=== PATIENT | male | born 1945 | race Caucasian/White ===

== ENCOUNTER 2016-08-04 06:38 | Inpatient (IN) | payer MEDICARE ==
[2016-07-28 17:20] LABS: BASOPHILS 0.3 %; BASOPHILS ABSOLUTE 0.03 10/3/uL (0.0-0.16); EOSINOPHILS 2.4 %; EOSINOPHILS ABSOLUTE 0.25 10/3/uL (0.0-0.53); HEMATOCRIT 38.9 % (40.0-51.0); HEMOGLOBIN 13.3 g/dL (13.6-17.8); IMMATURE GRANULOCYTES 0.2 %; IMMATURE GRANULOCYTES ABSOLUTE 0.02 10/3/uL (0.0-0.11); LYMPHOCYTES 18.5 %; LYMPHOCYTES ABSOLUTE 1.97 10/3/uL (0.67-4.30); MANUAL DIFF NO %; MEAN CORPUS HGB CONC 34.2 g/dL (32.0-36.0); MEAN CORPUSCULAR HEMOGLOB 30.6 pg (26.0-34.0); MEAN CORPUSCULAR VOLUME 89.4 fL (80-100); MONOCYTES 9.7 %; MONOCYTES ABSOLUTE 1.03 10/3/uL (0.21-1.20); NEUTROPHILS 68.9 %; NEUTROPHILS ABSOLUTE 7.32 10/3/uL (2.02-8.40); PLATELET COUNT 216 10/3/uL (150-400); RBC DISTRIBUTION WIDTH 12.9 % (12.0-16.0); RED CELL COUNT 4.35 10/6/uL (4.7-6.1); WHITE BLOOD CELLS 10.6 10/3/uL (4.5-10.5)
[2016-07-28 17:26] LABS: INTERNATIONAL NORMAL RATI 1.1 UNITS (-); PROTIME (NOT ORD) 14.3 SEC (12.0-14.5)
[2016-07-28 17:38] LABS: % IRON SAT 19 % (20-50); A/G RATIO 1.2 (0.7-1.9); ALBUMIN 3.9 G/DL (3.5-5.0); ALKALINE PHOSPHATASE 59 U/L (45-117); BUN (BLOOD UREA NITROGEN) 32 MG/DL (6-23); CALCIUM, SERUM 9.4 MG/DL (8.5-10.4); CHLORIDE, SERUM 103 MMOL/L (96-112); CO2 (CARBON DIOXIDE) 29 MMOL/L (24-34); CREATININE 1.44 MG/DL (0.70-1.30); GFR AFRICAN AMERICAN 56 ML/MIN (>=60); GFR NON AFRICAN AMERICAN 49 ML/MIN (>=60); GLOBULIN 3.3 G/DL (2.5-4.1); GLUCOSE, SERUM 156 MG/DL (60-99); IRON BINDING CAPACITY 318 MCG/DL (250-450); IRON, SERUM 60 MCG/DL (35-150); POTASSIUM, SERUM 4.5 MMOL/L (3.5-5.3); SGOT(AST) 20 U/L (5-40); SGPT(ALT) 39 U/L (5-65); SODIUM, SERUM 138 MMOL/L (135-148); TOTAL BILIRUBIN 0.4 MG/DL (0-1.2); TOTAL PROTEIN 7.2 G/DL (6.0-8.5)
[2016-07-28 18:23] LABS: ASCORBIC ACID (UR NOT ORDER) NEG (NEG); BILIRUBIN, URINE NEGATIVE (NEG); KETONE, URINE NEGATIVE (NEG); LEUKOCYTE ESTERASE(NOT OR NEG (NEG); WBC (NOT ORDERED) (RFLEX) < 1 (0-5)
--- NOTE | ~2016-08-04 | OP ---
Record Of Operation [facility] [address] [place]. [address] NAME: ABIODUN MILLER : 45 STATUS : ADM IN [facility]#: [id number] AGE: 71 ADM/REG DATE : 08/04/16 MR#: [id number] REPORT SERV DATE: 08/05/16 DICTATED BY: DUSTIN CALI DATE: 08/04/16 REPORT STATUS : Draft TRANSCRIBED BY: THOMAS DATE: 08/04/16 DATE OF PROCEDURE: 08/04/2016 PREOPERATIVE DIAGNOSES: 1. Coronary artery disease with angina. 2. Paroxysmal atrial fibrillation. 3. Aortic valve stenosis. 4. Type 2 insulin-dependent diabetes mellitus. 5. Morbid obesity (BMI greater than 40). 6. Obstructive sleep apnea. 7. Hypertension. 8. Hyperlipidemia. POSTOPERATIVE DIAGNOSES: 1. Coronary artery disease with angina. 2. Paroxysmal atrial fibrillation. 3. Aortic valve stenosis. 4. Type 2 insulin-dependent diabetes mellitus. 5. Morbid obesity (BMI greater than 40). 6. Obstructive sleep apnea. 7. Hypertension. 8. Hyperlipidemia. PROCEDURE PERFORMED: 1. Coronary artery bypass grafting x5, left internal mammary artery placed to left anterior descending, reverse saphenous vein graft placed to the first diagonal, reverse saphenous vein graft placed to the second obtuse marginal, reverse saphenous vein graft placed sequenced to the posterior descending artery and posterolateral branch vessels. 2. Aortic valve replacement using a 27 mm pericardial valve (Magna Ease). 3. Dyson-Maze IV procedure on cardiopulmonary bypass using radiofrequency ablation and cryoablation technique. 4. Endoscopic vein harvest, saphenous vein from the right leg. 5. Transesophageal echocardiography. SURGEON: Dustin Cali M.D. ASSISTANTS: Marko Joyner and Izzy Ayers. ANESTHESIA: General with Dr. Hooker and Dr. Prince. CNC MILL OPERATOR: Bob Swanson M.D. INDICATIONS: This is a 71-year-old, morbidly obese diabetic male with hypertension, who has a two-three year history of paroxysmal atrial fibrillation. He has been having episodes of dyspnea and decreasing exercise tolerance. He also noticed chest discomfort recently. These symptoms resolve with rest. He was seen by Dr. Swanson and underwent further evaluation. Record Of Operation [facility] [address] [place]. [address] NAME: ABIODUN MILLER : 45 STATUS : ADM IN PAT#: [id number] AGE: 71 ADM/REG DATE : 08/04/16 MR#: [id number] REPORT SERV DATE: 08/05/16 DICTATED BY: DUSTIN CALI DATE: 08/04/16 REPORT STATUS : Draft TRANSCRIBED BY: THOMAS DATE: 08/04/16 Nuclear stress test demonstrated moderate risk. Ventricular function was preserved with an EF of 55%. He had an echocardiogram that confirmed good ventricular function. He was found to have at least moderate aortic valve stenosis with a valve area of just greater than 1 cm2 and mean gradient across the valve of 18 mmHg. He underwent a cardiac catheterization, which demonstrated significant three-vessel coronary artery disease. We were asked to see the patient for possible coronary artery bypass grafting and maze procedure. We discussed this operation with the patient and his family. After lengthy discussion of operation, its indications, risks, they wished to proceed. Preoperative STS calculation mortality was 1.8% for just bypass surgery with a morbidity mortality of 18%. Aortic valve stenosis replacement was not included in this calculation. FINDINGS AT OPERATION: 1. Cross-clamp time 145 minutes. Total pump time 189 minutes. Intraoperative and echocardiography at the beginning of the case with Dr. Hooker demonstrated what appeared to be more severe aortic valve stenosis appreciated on cath. The patient's valve area was estimated less than 1.5 cm2 and gradient across the valve, peak was 33 mmHg. I discussed this finding with Dr. Swanson on the phone. It was concluded after our discussion that the patient should undergo aortic valve replacement for at least moderate aortic valve stenosis with a particularly calcified looking valve on echocardiography. 2. The LAD was a 1.75 mm moderately diseased vessel. A 3 mm RODRÍGUEZ was anastomosed to it with good runoff. 3. The first diagonal was 1.75 mm moderately diseased. A 3.5 mm RSVG was anastomosed to it with good runoff. 4. The first obtuse marginal was 1.75 mm mildly diseased. A 4 mm RSVG was anastomosed to it with good runoff. 5. The posterior descending artery was 1.75 mm mildly diseased. A 4 mm RSVG was anastomosed to it in a [id number] fashion with good runoff. 6. The posterolateral branch vessel was 2 mm mildly diseased. The end of the same 4 mm RSVG was anastomosed to it with good runoff. 7. The vein quality was okay. The vein was mildly thickened and small in the distal portion of the leg. There was a segment that did have clot and was chronically occluded. This was excised. All grafts did have good Doppler signal at the end of the case. 8. The aortic valve had 3 leaflets. Coronary anatomy was normal. There was no aortic root dilatation. The leaflets were heavily calcified as was the annulus. 9. The aortic valve was replaced using a 29 mm pericardial valve (Magna Ease). Eighteen Cor-Knots were used to secure the valve in place. 10.Dyson-Maze IV procedure was performed on cardiopulmonary bypass using the AtriCure radiofrequency ablation and cryoablation technique. See the Dyson-Maze IV lesion set checklist on the operative record for specific lesions set. This was a standard Dyson- Maze IV procedure. 11.We did ligate and amputate the left atrial appendage. 12.JUAN DIEGO at the end of the operation demonstrated that the aortic valve prosthesis was well seated and without perivalvular leak. There was no residual mitral insufficiency. 13.The patient's morbid obesity did increase the difficulty of the operation. Record Of Operation [facility] [address] [place]. [address] NAME: ABIODUN MILLER : 45 STATUS : ADM IN [facility]#: [id number] AGE: 71 ADM/REG DATE : 08/04/16 MR#: [id number] REPORT SERV DATE: 08/05/16 DICTATED BY: DUSTIN CALI DATE: 08/04/16 REPORT STATUS : Draft TRANSCRIBED BY: THOMAS DATE: 08/04/16 PATHOLOGIC SPECIMENS: Include left atrial appendage and aortic valve leaflets. DESCRIPTION OF PROCEDURE: The patient was brought to the operating suite where general anesthesia was induced, airway secured with an endotracheal tube. Lines secured by Anesthesia. Lopez catheter was placed. The patient's chest, abdomen, groin, and legs prepped with Hibiclens and ChloraPrep and draped with Ioban sterile sheets. JUAN DIEGO probe was placed by Dr. Hooker and after examination and discussion with Dr. Hooker. We re-called Dr. Swanson and informed him of the results of the JUAN DIEGO. After discussion with Dr. Swanson, it was decided to go ahead and replace this patient's heavily calcified aortic valve with at least moderate aortic stenosis. Then, saphenous vein was harvested from the right leg using endoscopic technique. Briefly, the vein was cut directly down upon through a 2 cm incision placed in the medial aspect of the right knee. Then, using VasoView trocars, the vessel was dissected from the surrounding subcutaneous tissue and fat. The side branches were identified, ligated, and divided with cautery. Once adequate length of vein had been dissected, a counter incision was made up in the groin and in the lower leg. The vein was ligated, divided, and brought through the knee incision. The vein quality was good. The leg was made hemostatic and closed in layers of absorbable suture. Skin was closed in subcuticular fashion. Next, a midline sternal incision was made and the sternum opened with a saw. The left hemithorax was elevated and the endothoracic fascia was incised. The side branches of the LUIS MIGUEL were clipped and divided. Once the LUIS MIGUEL was completely dissected, the patient was anticoagulated with heparin. The chest tube was placed in the left pleural cavity. The LUIS MIGUEL was clipped and divided distally. There was good flow through the LUIS MIGUEL and its pedicle was infiltrated with papaverine. Then, the Ruben retractor was placed in the pericardium over the innominate vein. The diaphragm was T'd and tacked to the side of the chest wall. Cannulation pursestring sutures were placed. Cannulation of the ascending aorta was carried out first. We then began the maze procedure on the right atrial side. A standard Dyson-Maze IV lesion set was performed using a combination of the AtriCure bipolar clamp and the cryoprobe. After right atrial appendage lesion was made, the dual-stage venous cannula was placed and the patient was placed on cardiopulmonary bypass. We continued with the right-sided lesion set for the maze procedure with superior and inferior vena caval lesions and right lateral atrial wall lesions. A coronary sinus and tricuspid annular lesions were performed using the cryoprobe. A retrograde cardioplegia cannula was placed in the coronary sinus. We then turned toward the left-sided portion of the maze procedure. The dissection was carried around the confluence of the pulmonary veins and the interatrial groove of [place]. Pulmonary vein isolation was then performed using AtriCure bipolar clamp and this was then tested for sensing and pacing ability and was negative. The lesion was placed at the base of the left atrial appendage and a connecting lesion between the left atrial appendage lesion and the pulmonary vein isolation lesion. Next, the aorta was cross-clamped. Initial dose cold blood cardioplegia solution was given Record Of Operation [facility] [address] [place]. [address] NAME: ABIODUN MILLER : 45 STATUS : ADM IN PAT#: [id number] AGE: 71 ADM/REG DATE : 08/04/16 MR#: [id number] REPORT SERV DATE: 08/05/16 DICTATED BY: DUSTIN CALI DATE: 08/04/16 REPORT STATUS : Draft TRANSCRIBED BY: MODJonel DATE: 08/04/16 in a combination of antegrade and retrograde fashion, then in a retrograde manner at 25 minutes intervals during the remainder of the cross-clamp period. Following this first dose of cardioplegia, a left atriotomy was made in the interatrial groove of [facility]. We then continued with the maze procedure. Superior and inferior dome lesions were performed around the left atrium and then mitral annular lesion was performed using a combination of AtriCure RFA and the cryoablation probe. Once this was completed, the LV vent was directed through the right superior pulmonary vein into the left ventricle and secured. The left atriotomy was then closed in a two-layer fashion with running pledgeted suture of 4-0 Prolene. We then turned our attention towards the bypass grafts. The heart support was placed. The heart was then positioned for the posterolateral branch graft. Arteriotomy was made and the end of the segment of vein graft was trimmed and anastomosed to it with 7-0 Prolene. This vein graft was then measured back to the posterior descending artery where another arteriotomy was made and the corresponding venotomy made in this vein graft. Then, a side- to-side saphenous coronary anastomosis was constructed with 7-0 Prolene. This sequential vein graft was measured back to the right side of the ascending aorta where it was divided. After another dose of cardioplegia, we positioned the heart for the obtuse marginal graft. Arteriotomy was made. The vein graft trimmed and anastomosed to it with 7-0 Prolene. This vein graft was then measured to the left side of the ascending aorta where it was divided. We then positioned the heart for the diagonal graft. Another arteriotomy was made. The vein graft trimmed and anastomosed to it with 7-0 Prolene. This vein graft was measured back to the left side of the ascending aorta where it was divided. Another dose of cardioplegia was given and we positioned the heart for the LAD graft. Arteriotomy was made in the mid LAD. The LUIS MIGUEL was brought out of the left chest through a notch in the pericardium over the pulmonary artery. The LUIS MIGUEL was opened and anastomosed to the LAD with running suture of 8-0 Prolene. The endothoracic fascia was tacked to the epicardium. Another dose of cardioplegia was given and the heart support was removed. The heart was gently rotated toward the surgeon. The left atrial appendage was grasped. It was ligated and amputated at its base using thoracoscopic stapler and a 60 mm purple staple load. Following completion of the bypass grafts. We turned our attention towards the aortic valve. A hockey-stick type aortotomy incision was made. The aortic valve was inspected. It was heavily calcified 3-leaflet valve with normal coronary anatomy. There was no annular dilatation. The valve leaflets were excised and the annulus debrided of all calcific material. Iced saline irrigated copiously into the left ventricle and ascending aorta to remove any particulate matter. The valve was sized and a 27 mm pericardial valve was selected. Interrupted pledgeted sutures of 2-0 Tycron placed circumferentially about the aortic valve annulus with pledgets on the ventricular side. The sutures were passed through the sewing cuff of the prosthetic valve. This was lowered into position and each sutures individually secured and divided using a Cor-Knot device. A total of 18 Cor-Knots were utilized. Inspection of the right and left main coronary ostia demonstrated no obstruction. Warming was begun. The aortotomy incision was closed in a two-layer fashion with running Record Of Operation [facility] [address] [place]. [address] NAME: ABIODUN MILLER : 45 STATUS : ADM IN [facility]#: [id number] AGE: 71 ADM/REG DATE : 08/04/16 MR#: [id number] REPORT SERV DATE: 08/05/16 DICTATED BY: DUSTIN CALI DATE: 08/04/16 REPORT STATUS : Draft TRANSCRIBED BY: MODL DATE: 08/04/16 pledgeted suture of 5-0 Prolene. Then, the proximal ends of each of the vein grafts was measured to the ascending aorta. Three 4.5 mm punch aortotomies were made in the proximal ends of each vein grafts were anastomosed to these sites with running sutures of 6-0 Prolene. The patient was placed in Trendelenburg and final dose of warm blood cardioplegia was given in a retrograde fashion. Ventricular and atrial pacing wires were placed. Following the last dose of cardioplegia and deairing of the aorta, the aortic cross clamp was removed. The distal and proximal anastomoses were inspected and made hemostatic. Doppler demonstrated good flow through the grafts. The heart was paced in AV sequential fashion. Ventilation was begun. Low-dose inotropic agents were started. When heart demonstrated good contractility, it was allowed to fill and eject. When deairing was completed, the patient was taken out of Trendelenburg. The ascending aortic vent removed and these pursestring sutures tied and reinforced. The LV vent was likewise removed and these pursestring sutures tied. The patient was then weaned from cardiopulmonary bypass with inotropic support. The venous cannula was removed and these pursestring sutures tied. JUAN DIEGO examination demonstrated a well seated aortic valve prosthesis. Overall ventricular function was good. Septal hypokinesis was noted. There was no significant mitral insufficiency. Protamine was administered by Anesthesia and following a period of hemodynamic stability, the aortic cannula was removed and these pursestring sutures tied and reinforced. The patient continued to do well and chest irrigated copiously with saline. Meticulous hemostasis was obtained. Hemasorb was placed along the cut edge of the sternum. Once hemostasis was assured, the pericardium was draped over the anterior surface of the heart and tacked in position. Doppler demonstrated good flow through the grafts following protamine administration. Then, chest tubes were placed and the sternum reapproximated with 8 sternal wires. The clavipectoral fascia and linea alba were closed with #1 Stratafix. The subcutaneous tissue was closed with Stratafix and skin closed in a subcuticular fashion. The patient tolerated the procedure well. There were no complications. Sponge and needle counts were correct. DISPOSITION: The patient was left intubated, sedated, and transported to the intensive care unit in a stable condition. SIOMARA/THOMAS Dustin Cali M.D. / [id number] Record Of [address] [address] NAME: ABIODUN MILLER : 45 STATUS : ADM IN PAT#: [id number] AGE: 71 ADM/REG DATE : 08/04/16 MR#: [id number] REPORT SERV DATE: 08/05/16 DICTATED BY: DUSTIN CALI DATE: 08/04/16 REPORT STATUS : Draft TRANSCRIBED BY: THOMAS DATE: 08/04/16 CC: Maurilio Lawrence J. Michael Mark Thel, M.D.
--- NOTE | ~2016-08-04 | DS ---
Discharge Summary [facility] [address] [place]. [address] NAME: ABIODUN MILLER : 45 STATUS : DIS IN PAT#: [id number] AGE: 71 ADM/REG DATE : 08/04/16 MR#: [id number] REPORT SERV DATE: 08/28/16 DICTATED BY: DUSTIN CALI DATE: 08/28/16 REPORT STATUS : Draft TRANSCRIBED BY: THOMAS DATE: 08/28/16 Data Collection from hospitalization DISCHARGE DIAGNOSES: 1. Coronary artery disease. 2. Aortic stenosis. 3. Type 2 diabetes mellitus. 4. Hypertension. 5. Chronic kidney disease. 6. Mixed hyperlipidemia. 7. Paroxysmal atrial fibrillation. 8. Former smoker. 9. Obstructive sleep apnea. CONSULTATIONS: 1. Higinio Mcmanus M.D. 2. Georgie Willett NP. 3. Jenaro Maria M.D. PROCEDURES: 1. Coronary artery bypass grafting x5 with RODRÍGUEZ to the LAD, reverse saphenous vein graft placed to the first diagonal, reverse saphenous vein graft placed to the second obtuse marginal, reverse saphenous vein graft placed sequenced to the posterior descending artery and posterolateral branch vessel, aortic valve replacement using a 27 mm pericardial valve (Magna Ease), Dyosn-Maze IV procedure on cardiopulmonary bypass using radiofrequency ablation and cryoablation technique; endoscopic vein harvest of the saphenous vein from the right leg. 2. Transesophageal echocardiography, 08/04/2016. 3. Renal ultrasound, 08/07/2016. PATHOLOGY: Left atrial appendage-within normal limits. No ischemic myocardial change, aortic valve leaflets with extensive calcification, and inflammatory vegetations not present. DISCHARGE MEDICATIONS: 1. Norvasc 5 mg twice a day. 2. Aspirin 81 mg daily. 3. Lipitor 40 mg at bedtime. 4. Vitamin B12 1000 mcg daily. 5. Valium 2.5 mg four times a day as needed. 6. Hydralazine 100 mg every 8 hours. 7. [place] 5/325 mg one to two tablets every 4 hours as needed. 8. Toujeo 80 units subcutaneously at bedtime. 9. Humalog as instructed. 10.Imdur 30 mg daily. 11.Lopressor 50 mg twice a day. 12.NitroQuick 0.4 mg sublingually as needed. 13.Protonix 40 mg every day at bedtime. Discharge Summary [facility] [address] [place]. [address] NAME: ABIODUN MILLER : 45 STATUS : DIS IN PAT#: [id number] AGE: 71 ADM/REG DATE : 08/04/16 MR#: [id number] REPORT SERV DATE: 08/28/16 DICTATED BY: DUSTIN CALI DATE: 08/28/16 REPORT STATUS : Draft TRANSCRIBED BY: THOMAS DATE: 08/28/16 14.Livalo 4 mg at bedtime. 15.K-Dur 20 mEq daily. 16.Demadex 40 mg daily. 17.Coumadin 5 mg every evening. 18.Ambien 5 mg at bedtime. CONDITION AT DISCHARGE: Stable. DISPOSITION: The patient was discharged home on an 1800-calorie diabetic diet with activities as instructed. FOLLOWUP: 1. He would follow up with Chente Paul on 09/14/2016. 2. He would follow up with Dr. Bob Swanson on 08/22/2016. 3. He would follow up with Dr. Chente Prabhakar in one to two weeks following discharge. 4. He would follow up at the [facility] on 08/17/2016. HOSPITAL COURSE: This is a 71-year-old morbidly obese diabetic male who has hypertension and a two to three-year history of paroxysmal atrial fibrillation. He had been having episodes of dyspnea and decreasing exercise tolerance. He had also noted chest discomfort recently. These symptoms resolve with rest. He had been seen by Dr. Swanson and underwent further evaluation. A nuclear stress test demonstrated moderate risk. Ventricular function was preserved with an ejection fraction of 55%. An echocardiogram confirmed good ventricular function. He was found to have at least moderate aortic valve stenosis with a valve area of just greater than 1 cm2 and a mean gradient across the valve of 18 mmHg. Cardiac catheterization demonstrated significant three-vessel coronary artery disease. Treatment options were discussed and it was elected to proceed with surgical intervention. He was admitted to the hospital at this time for further evaluation and treatment. On the day following admission, he was taken to the operating room where he underwent the above-mentioned procedures, tolerated this well. There were no complications. On postop day #1, he had been extubated. Creatinine level was 1.74. He was seen by Dr. Jenaro Maria. He was alert and cooperative. White count was 13.6. Amiodarone and beta-rylee were continued for paroxysmal atrial fibrillation. Atorvastatin was continued. We encouraged him to increase his activity as tolerated. He was seen by Georgie Willett regarding diabetes management. The patient reports a 14-year history of diabetes with 10 years being dependent on insulin. At home, blood sugars reportedly ranged in the 160s to 220s. The patient has failed therapy with metformin, Actos, and Januvia and was currently treating his diabetes with both long and short-acting insulin at home. He was complaining of surgical site pain at this time. He had some shortness of breath on exertion, nausea, and decreased appetite. He is on an insulin drip currently. His last hemoglobin A1c preoperatively was 8.2. We were going to continue the postop cardiac insulin drip per protocol. Levemir would be given subcutaneously when blood sugar was less than or equal to 110 x2 checks. We would start the patient at that time on level 3 sliding scale insulin. We would adjust his treatment as indicated and monitor his labs. On the , he was seen by Dr. Higinio Mcmanus with decreased urine output and elevated creatinine. He was felt to have an acute kidney injury. Chest x-ray had shown increased vascular congestion. He is being given Lasix and Discharge Summary [address] [address] NAME: ABIODUN MILLER : 45 STATUS : DIS IN PAT#: [id number] AGE: 71 ADM/REG DATE : 08/04/16 MR#: [id number] REPORT SERV DATE: 08/28/16 DICTATED BY: DUSTIN CALI DATE: 08/28/16 REPORT STATUS : Draft TRANSCRIBED BY: MODJonel DATE: 08/28/16 had minimal urine output in the Lopez. A left chest tube was in place. White count was 17.4. Creatinine level had increased to 2.05. The patient has a history of underlying kidney stone disease and diabetic nephropathy, IV Bumex was started. We were going to check spot urine, urea, creatinine, and protein. It was felt that he would need an outpatient stoper. He takes Diovan/HCT at home, and it was felt that he most likely has diabetic nephropathy. Anticoagulation continued. He had been up sitting in a chair. CPAP was being used for his obstructive sleep apnea. He had no nausea or vomiting. Level 2 sliding scale insulin continued as well as Levemir and aspart. On 08/07/2016, he was up sitting in a chair. He did have some incisional chest pain. Chest x-ray showed worsening pulmonary edema. White count was 13. His medial chest tube was removed. Pacing wires were discontinued. Coumadin had been started. Creatinine level was 2.3. The next day, he said he was feeling better. He was in a sinus rhythm. Creatinine had decreased to 1.96. He seemed to be breathing easier. Chest x-ray showed improved bilateral pleural effusions. INR level was 1.2. The Lopez catheter remained in place. Bumex was decreased. A renal ultrasound had been performed. Over the next couple of days the Lopez catheter was going to be removed. He was breathing okay. Creatinine continued to decrease. Demadex was decreased. Coumadin was continued. Nitropaste was stopped. He was encouraged to utilize his pain medication as needed. He did have some anxiety. On 08/12/2016, his incisions were clean, dry, and intact. INR level was 1.4. He had no new complaints. He was tolerating his diet. The following day, he was ambulating without assistance. Telemetry revealed atrial fibrillation. INR level was 1.7. Coumadin was continued. Discharge planning was performed. On 08/14/2016, he was wanting to go home. He was alert and cooperative. His lungs were clear. Chest x-ray showed improvement of effusion. Later in the day he was in a normal sinus rhythm. Discharge instructions were given. Creatinine level was 1.15. Due to his improved and stable condition, he was discharged home with the above-stated instructions. Information collected by: Nafisa Loyd I submit the above information as my discharge summary. TG/MODL Dustin Cali M.D. / [id number] CC: Maurilio Lawrence MD Rohit Gupta, M.D. Gordon Graham, M.D.
--- NOTE | ~2016-08-04 | CN ---
Consultation Report [place] [id number] [facility] [place]. [address] NAME: ABIODUN MILLER : 45 STATUS : ADM IN [facility]#: [id number] AGE: 71 ADM/REG DATE : 08/04/16 MR#: [id number] REPORT SERV DATE: 08/07/16 DICTATED BY: GEORGIE WILLETT DATE: 08/06/16 REPORT STATUS : Draft TRANSCRIBED BY: MODL DATE: 08/06/16 THIS IS A HOSPITALIST CONSULTATION DATE OF CONSULTATION: 08/05/2016 REASON FOR CONSULTATION: Diabetes management per Dr. Cali, postop CABG protocol. HISTORY OF PRESENT ILLNESS: This is an awake, alert, and oriented 71-year-old male, who was admitted 08/04/[address] Cali and subsequently underwent a five-vessel CABG on the same day. He is postop day 1, and remains on an insulin drip with increasing insulin needs. Hospitalist has been asked to manage his blood sugar per protocol. The patient reports a 14-year history of diabetes with 10 years dependent on insulin. His blood sugar ranges at home, reportedly 160s to 220s. The patient has failed therapy with metformin, Actos, and Januvia and is currently treating his diabetes with both long and short-acting insulin at home. At this time, the patient complains surgical site pain, shortness of breath on exertion, nausea, and decreased appetite. He does deny chest pain, palpitations, vomiting, or vision disturbances. PAST MEDICAL HISTORY: 1. Neuropathy including retinal neuropathy. 2. Hypertension. 3. Atrial fibrillation. 4. High cholesterol. 5. Sleep apnea. 6. GERD. 7. Kidney stones. 8. Type 2 insulin-dependent diabetes mellitus. PAST SURGICAL HISTORY: 1. Five-vessel CABG, 08/04/2016. 2. Bilateral intra-ocular lens implants, 2011. 3. Heart catheterization, 07/19/2016. PATIENT SERVICE REPRESENTATIVE: Bob Swanson M.D. SOCIAL HISTORY: The patient is a former smoker having quit smoking cigarettes 40 years ago. The patient denies illegal drug use. The patient reports drinking approximately one glass of wine daily. FAMILY HISTORY: Father at age 94 with no known medical history. Mother at age 80 with complications related to an aneurysm. ALLERGIES: IODINE CONTRAST MEDIA. Consultation Report [facility] [address] [place]. [address] NAME: ABIODUN MILLER : 45 STATUS : ADM IN [facility]#: [id number] AGE: 71 ADM/REG DATE : 08/04/16 MR#: [id number] REPORT SERV DATE: 08/07/16 DICTATED BY: GEORGIE WILLETT DATE: 08/06/16 REPORT STATUS : Draft TRANSCRIBED BY: THOMAS DATE: 08/06/16 HOME MEDICATIONS: 1. Norvasc 5 mg p.o. twice daily. 2. Eliquis 5 mg p.o. twice daily. 3. Aspirin 81 mg p.o. daily. 4. Vitamin B12 1000 mcg p.o. daily. 5. [place] 10/325, 0.5 tabs p.o. q.4 hours p.r.n. 6. Toujeo 80 units subcutaneous every bedtime. 7. Humalog sliding scale if blood sugar is greater than 150. 8. Imdur 30 mg p.o. daily. 9. Toprol-XL 25 mg p.o. q.a.m. 10.Nitroglycerin 0.4 mg sublingual p.r.n. 11.Protonix 40 mg p.o. q.h.s. 12.Livalo 4 mg p.o. q.h.s. 13.Diovan HCT 320/25, one tab p.o. daily. 14.Ambien 5 mg p.o. q.h.s. REVIEW OF SYSTEMS: A complete 10-point review of systems was negative except as per HPI. PHYSICAL EXAMINATION: VITAL SIGNS: T 99.6, P 83, RR 26, BP 138/46, SpO2 93% on 2 L nasal cannula. GENERAL: Well-appearing male, in no acute distress. NEURO: Awake, alert, and oriented x3 without focal deficit. HEENT: Normocephalic, atraumatic without lymphadenopathy. NECK: Supple. No JVD. LUNGS: CTA in all lung roberto with normal respiratory effort, diminished in bilateral bases. CV: Regular rate and rhythm. S1, S2 auscultated. Midline sternotomy dressing clean, dry, and intact. ABDOMEN: Soft, round, nontender. Bowel sounds hypoactive in all quadrants. No masses. EXTREMITIES: No cyanosis. Cap refill within normal limits. Generalized edema noted in bilateral lower extremities. PSYCH: Normal affect. SKIN: Clean dry and intact with mucous membranes pink and moist. Midline sternotomy dressing as documented above. Chest tube tight and secure to close drainage system. PERTINENT LABORATORY DATA: Most recent serum glucose 122, blood glucose fingerstick ranges 109 to 165 over the past 24 hours. The patient is currently on an insulin drip at 10 units/hour per protocol. ASSESSMENT AND PLAN: 1. Type 2 diabetes mellitus, which is insulin dependent. This is chronic with his last hemoglobin A1c preop as 8.2. We will continue the postop cardiac insulin drip protocol. We will give Levemir 35 units subcutaneous when blood sugar is less than or equal to 110 x 2 checks and we will start the patient at that time on sliding scale insulin level 3. We will adjust this treatment as indicated and monitor labs. Consultation Report [place] [id number] [facility] [place]. [address] NAME: ABIODUN MILLER : 45 STATUS : ADM IN [facility]#: [id number] AGE: 71 ADM/REG DATE : 08/04/16 MR#: [id number] REPORT SERV DATE: 08/07/16 DICTATED BY: GEORGIE WILLETT DATE: 08/06/16 REPORT STATUS : Draft TRANSCRIBED BY: MODJonel DATE: 08/06/16 2. Post coronary artery bypass graft. He is postop day 1 and we will defer the management of this to primary team following diabetes as requested. Thank you for this consult. We are pleased to follow this patient with you. This consult was completed through thorough review of [facility], old records, [facility], current chart as well as thorough interview with the patient. [facility]/THOMAS Georgie Willett NP / [id number] CC: Maurilio Lawrence J. MICHAEL
--- NOTE | ~2016-08-04 | CN ---
Consultation Report [facility] [address] [place]. [address] NAME: ABIODUN GREY : 45 STATUS : ADM IN LOCATED WITHIN [facility]#: [id number] AGE: 71 ADM/REG DATE : 08/04/16 MR#: [id number] REPORT SERV DATE: 08/06/16 DICTATED BY: HIGINIO MCMANUS DATE: 08/06/16 REPORT STATUS : Draft TRANSCRIBED BY: MODL DATE: 08/06/16 CONSULTATION NOTE DATE OF CONSULTATION: 08/06/2016 CONSULTING GROUP: [facility]. CHIEF COMPLAINT: Postop day 2, CABG x5, AVR, and maze, now with decreased urine output and elevated creatinine. HISTORY OF PRESENT ILLNESS: Mr. Grey is a 71-year-old gentleman with coronary artery disease, who is postop day 2 CABG x5, AVR, and maze. He has type 2 diabetes, atrial fibrillation and most likely CKD stage 3, but not seen by a key operator. He started to have a bump in his creatinine. Dr. Cali, asked me to see the patient for management of CATALINO and diuretics. It turns out that the patient has a chest x-ray this morning with increased vascular congestion. He was given Lasix 20 mg per protocol, but had minimal urine output in Lopez. Intra operation cross-clamp time was 145 minutes, pump time was 189 minutes. He is off most drips and weaning off the Cardene. He is a good historian. He has mild shortness of breath, but knows his medical history well. He had a remote history of nephrolithiasis and was seen by probable urologist in [place], drinks plenty of water. His home med list includes Diovan HCT which is appropriately is stopped perioperatively. Currently, pertinent medications include Norvasc 5 mg daily, Levemir, Lopressor 12.5 mg every 12 hours, and Protonix 40 mg at bedtime. He is not on any maintenance fluids. I spoke to the patient and OPTICAL MANUFACTURING TECHNICIAN regarding his case. PAST MEDICAL HISTORY: Coronary artery disease, paroxysmal atrial fibrillation, moderate aortic valve stenosis, type 2 diabetes with possible nephropathy, obesity, obstructive sleep apnea, hypertension, hyperlipidemia, nephrolithiasis. FAMILY HISTORY: Noncontributory according to the chart. Mother had [place]. SOCIAL HISTORY: Lives with in [place], [place]. Former smoker. Occasional alcohol. No drug use. REVIEW OF SYSTEMS: Positive for dyspnea on exertion, chest discomfort resolved with rest, shortness of breath, and fluid overload. All other review of systems negative at this time. OBJECTIVE/PHYSICAL EXAMINATION: VITAL SIGNS: Temperature 99.0, pulse of 72, blood pressure 140/49, intake 1998, output 1380, of which 870 is urine. GENERAL: Alert and ordered x3, in mild respiratory distress. EYES: Extraocular movement is intact. No conjunctivitis. ENT: No facial droop. Dry oropharynx. LYMPH: No supraclavicular or cervical lymphadenopathy. Consultation Report [place] [id number] [facility] [place]. [address] NAME: ABIODUN GREY : 45 STATUS : ADM IN LOCATED WITHIN [facility]#: [id number] AGE: 71 ADM/REG DATE : 08/04/16 MR#: [id number] REPORT SERV DATE: 08/06/16 DICTATED BY: HIGINIO MCMANUS DATE: 08/06/16 REPORT STATUS : Draft TRANSCRIBED BY: THOMAS DATE: 08/06/16 SKIN: No rash or lesions. HEART: Two chest tubes are in place. S1, S2 regular. Positive edema. LUNGS: Clear to auscultation anteriorly with few basal crackles. No tachypnea. ABDOMEN: Soft, nontender, distended. No bowel sounds. EXTREMITIES: Lopez with low amount of yellow urine. NEURO: Alert and oriented x3. Good historian. LABS: Chest x-ray shows increased vascular congestion. Left chest tube in place. Right IJ sheath . Sodium 139, potassium 5.4, chloride 108, bicarbonate 22, BUN 39, creatinine 2.05, and glucose 134, calcium 8.0, magnesium 2.4. White count 17.4, hemoglobin 9.0, hematocrit 25.7, platelets 98. ASSESSMENT AND PLAN: Mr. Grey is a 71-year-old gentleman with coronary artery disease, status post CABG, maze, and AVR, now with volume overload and acute kidney injury. 1. Renal. The patient's creatinine bumped from 1.56 to 1.74 to 2.05. Presumed baseline is about 1.4. His CVP is 19 currently. He had a cross-clamp time of 145 minutes. Chest x-ray shows increased pulmonary edema. He also has a history of underlying kidney stone disease and diabetic nephropathy. PLAN: 1. Start Bumex 2 mg IV q.6 hours. 2. Check a spot urine urea, creatinine, protein now. 3. Check labs at 03:00 p.m. today. Potassium should trend down if urine output picks up with Bumex. 4. I will follow labs and fluid status with you. 5. The patient will need outpatient key operator. He takes Diovan HCT at home and most likely has diabetic nephropathy. ERENDIRA/MODL Higinio Mcmanus M.D. / [id number] CC: Maurilio Lawrence
[~2016-08-04 06:38] MED LIST: ADVIL PO; AMB5 PO; ASAB PO; CYANO1000T PO; DIOVAN HCT320 MG/25 PO; ELIQUIS 5 MG TAB5 MG PO; HUMALOGPEN SC; IMDUR30 PO; LIVALO4 MG PO; NITROQUICK0.4 MG SL; NORCO1 TAB PO; NORV5 PO; PROTONIX PO; TOPXL25 PO; TOUJEO; TOUJEO SC
[2016-08-04 20:49] LABS: BE (BASE EXCESS) -0.8 MEQ/L (0 +/- 2.5); CARBOXYHEMOGLOBIN 0.2 % (0-3); HCO3 (ACTUAL BICARBONATE) 24.3 MEQ/L (23-27); HEMOBLOGIN CONTENT 13.3 G/DL (14-18); INSTRUMENT SERIAL # 11843; METHEMOGLOBIN 0.5 % (0-3); MODE SIMV; O2 CONTENT 18.7 VOL% (18-24); OPERATOR ID 13744; PCO2 (CO2 TENSION) 42 MMHG (35-45); PO2 (O2 TENSION) 190 MMHG (79-93); SAMPLE Arterial; TIDAL VOLUME 800 ML; pH 7.38 (7.37-7.43)
[2016-08-04 21:07] LABS: HEMATOCRIT 36.2 % (40.0-51.0); HEMOGLOBIN 12.4 g/dL (13.6-17.8)
[2016-08-04 21:08] LABS: PLATELET COUNT 128 10/3/uL (150-400)
[2016-08-04 21:16] LABS: INTERNATIONAL NORMAL RATI 1.5 UNITS (-); PARTIAL THROMBO TIME 32.5 SEC (22.5-37.2); PROTIME (NOT ORD) 17.8 SEC (12.0-14.5)
[2016-08-04 21:44] LABS: CHLORIDE, SERUM 111 MMOL/L (96-112); CO2 (CARBON DIOXIDE) 27 MMOL/L (24-34); CREATININE 1.56 MG/DL (0.70-1.30); GFR AFRICAN AMERICAN 51 ML/MIN (>=60); GFR NON AFRICAN AMERICAN 44 ML/MIN (>=60); SODIUM, SERUM 142 MMOL/L (135-148)
[2016-08-04 21:45] LABS: BUN (BLOOD UREA NITROGEN) 19 MG/DL (6-23); CALCIUM, SERUM 8.4 MG/DL (8.5-10.4); GLUCOSE, SERUM 119 MG/DL (60-99); POTASSIUM, SERUM 4.7 MMOL/L (3.5-5.3)
[2016-08-05 01:24] LABS: BE (BASE EXCESS) -1.9 MEQ/L (0 +/- 2.5); CARBOXYHEMOGLOBIN 0.4 % (0-3); DEVICE NC; HCO3 (ACTUAL BICARBONATE) 22.6 MEQ/L (23-27); HEMOBLOGIN CONTENT 12.4 G/DL (14-18); INSTRUMENT SERIAL # 11843; METHEMOGLOBIN 0.5 % (0-3); O2 CONTENT 15.7 VOL% (18-24); OPERATOR ID 13744; PCO2 (CO2 TENSION) 38 MMHG (35-45); PO2 (O2 TENSION) 61 MMHG (79-93); SAMPLE Arterial
[2016-08-05 03:27] LABS: BASOPHILS 0.1 %; BASOPHILS ABSOLUTE 0.01 10/3/uL (0.0-0.16); EOSINOPHILS 0 %; HEMOGLOBIN 11.3 g/dL (13.6-17.8); IMMATURE GRANULOCYTES 0.6 %; IMMATURE GRANULOCYTES ABSOLUTE 0.08 10/3/uL (0.0-0.11); LYMPHOCYTES 5.4 %; LYMPHOCYTES ABSOLUTE 0.74 10/3/uL (0.67-4.30); MEAN CORPUS HGB CONC 34.8 g/dL (32.0-36.0); MEAN CORPUSCULAR HEMOGLOB 30.8 pg (26.0-34.0); MEAN CORPUSCULAR VOLUME 88.6 fL (80-100); MEAN PLATELET VOLUME 11.4 fL (9.2-13.0); MONOCYTES 6.6 %; NEUTROPHILS 87.3 %; NEUTROPHILS ABSOLUTE 11.88 10/3/uL (2.02-8.40); PLATELET COUNT 107 10/3/uL (150-400); RBC DISTRIBUTION WIDTH 12.7 % (12.0-16.0); RED CELL COUNT 3.67 10/6/uL (4.7-6.1); WHITE BLOOD CELLS 13.6 10/3/uL (4.5-10.5)
[2016-08-05 03:32] LABS: HEMATOCRIT 32.5 % (40.0-51.0); MANUAL DIFF NO %
[2016-08-05 03:35] LABS: INTERNATIONAL NORMAL RATI 1.4 UNITS (-); PROTIME (NOT ORD) 16.9 SEC (12.0-14.5)
[2016-08-05 03:38] LABS: BUN (BLOOD UREA NITROGEN) 21 MG/DL (6-23); CALCIUM, SERUM 8.3 MG/DL (8.5-10.4); CHLORIDE, SERUM 112 MMOL/L (96-112); CO2 (CARBON DIOXIDE) 26 MMOL/L (24-34); CREATININE 1.74 MG/DL (0.70-1.30); GFR AFRICAN AMERICAN 45 ML/MIN (>=60); GFR NON AFRICAN AMERICAN 39 ML/MIN (>=60); GLUCOSE, SERUM 122 MG/DL (60-99); POTASSIUM, SERUM 4.3 MMOL/L (3.5-5.3); SODIUM, SERUM 144 MMOL/L (135-148)
[2016-08-05 15:51] LABS: HEMATOCRIT 29.9 % (40.0-51.0); HEMOGLOBIN 10.2 g/dL (13.6-17.8)
[2016-08-05 15:58] LABS: POTASSIUM, SERUM 4.7 MMOL/L (3.5-5.3)
[2016-08-06 04:02] LABS: BASOPHILS 0.1 %; BASOPHILS ABSOLUTE 0.01 10/3/uL (0.0-0.16); EOSINOPHILS 0 %; IMMATURE GRANULOCYTES 0.3 %; IMMATURE GRANULOCYTES ABSOLUTE 0.06 10/3/uL (0.0-0.11); LYMPHOCYTES 7.2 %; LYMPHOCYTES ABSOLUTE 1.26 10/3/uL (0.67-4.30); MEAN CORPUSCULAR HEMOGLOB 31.4 pg (26.0-34.0); MEAN CORPUSCULAR VOLUME 89.5 fL (80-100); MEAN PLATELET VOLUME 11.9 fL (9.2-13.0); MONOCYTES ABSOLUTE 3.13 10/3/uL (0.21-1.20); NEUTROPHILS 74.4 %; NEUTROPHILS ABSOLUTE 12.97 10/3/uL (2.02-8.40); PLATELET COUNT 98 10/3/uL (150-400); RBC DISTRIBUTION WIDTH 13.4 % (12.0-16.0); WHITE BLOOD CELLS 17.4 10/3/uL (4.5-10.5)
[2016-08-06 04:13] LABS: HEMATOCRIT 25.7 % (40.0-51.0); MANUAL DIFF NO %; RED CELL COUNT 2.87 10/6/uL (4.7-6.1)
[2016-08-06 04:15] LABS: CHLORIDE, SERUM 108 MMOL/L (96-112); CO2 (CARBON DIOXIDE) 22 MMOL/L (24-34); CREATININE 2.05 MG/DL (0.70-1.30); GFR AFRICAN AMERICAN 37 ML/MIN (>=60); GFR NON AFRICAN AMERICAN 32 ML/MIN (>=60); GLUCOSE, SERUM 134 MG/DL (60-99); POTASSIUM, SERUM 5.4 MMOL/L (3.5-5.3); SODIUM, SERUM 139 MMOL/L (135-148)
[2016-08-06 04:16] LABS: BUN (BLOOD UREA NITROGEN) 39 MG/DL (6-23)
[2016-08-06 15:59] LABS: ALBUMIN 3.4 G/DL (3.5-5.0); BUN (BLOOD UREA NITROGEN) 51 MG/DL (6-23); CALCIUM, SERUM 7.8 MG/DL (8.5-10.4); CHLORIDE, SERUM 101 MMOL/L (96-112); CO2 (CARBON DIOXIDE) 24 MMOL/L (24-34); CREATININE 2.24 MG/DL (0.70-1.30); GFR AFRICAN AMERICAN 33 ML/MIN (>=60); GFR NON AFRICAN AMERICAN 28 ML/MIN (>=60); GLUCOSE, SERUM 304 MG/DL (60-99); PHOSPHORUS, SERUM 5.1 MG/DL (2.5-4.5); POTASSIUM, SERUM 5.3 MMOL/L (3.5-5.3); SODIUM, SERUM 132 MMOL/L (135-148)
[2016-08-07 03:25] LABS: BASOPHILS 0 %; EOSINOPHILS 0 %; HEMATOCRIT 25.1 % (40.0-51.0); HEMOGLOBIN 8.7 g/dL (13.6-17.8); IMMATURE GRANULOCYTES 0.4 %; IMMATURE GRANULOCYTES ABSOLUTE 0.05 10/3/uL (0.0-0.11); LYMPHOCYTES 7.8 %; LYMPHOCYTES ABSOLUTE 1.01 10/3/uL (0.67-4.30); MEAN CORPUS HGB CONC 34.7 g/dL (32.0-36.0); MEAN CORPUSCULAR HEMOGLOB 30.9 pg (26.0-34.0); MEAN PLATELET VOLUME 10.7 fL (9.2-13.0); MONOCYTES 14.9 %; MONOCYTES ABSOLUTE 1.94 10/3/uL (0.21-1.20); NEUTROPHILS 76.9 %; PLATELET COUNT 87 10/3/uL (150-400); RBC DISTRIBUTION WIDTH 12.9 % (12.0-16.0); RED CELL COUNT 2.82 10/6/uL (4.7-6.1)
[2016-08-07 03:26] LABS: MANUAL DIFF NO %
[2016-08-07 03:39] LABS: CHLORIDE, SERUM 101 MMOL/L (96-112); CO2 (CARBON DIOXIDE) 26 MMOL/L (24-34); CREATININE 2.27 MG/DL (0.70-1.30); GFR AFRICAN AMERICAN 32 ML/MIN (>=60); GFR NON AFRICAN AMERICAN 28 ML/MIN (>=60); PHOSPHORUS, SERUM 4.3 MG/DL (2.5-4.5); POTASSIUM, SERUM 4.7 MMOL/L (3.5-5.3); SODIUM, SERUM 132 MMOL/L (135-148)
[2016-08-07 03:40] LABS: BUN (BLOOD UREA NITROGEN) 56 MG/DL (6-23); GLUCOSE, SERUM 202 MG/DL (60-99)
[2016-08-07 16:14] LABS: INTERNATIONAL NORMAL RATI 1.2 UNITS (-); PROTIME (NOT ORD) 14.6 SEC (12.0-14.5)
[2016-08-08 03:39] LABS: BASOPHILS 0.1 %; BASOPHILS ABSOLUTE 0.01 10/3/uL (0.0-0.16); EOSINOPHILS 0.2 %; EOSINOPHILS ABSOLUTE 0.02 10/3/uL (0.0-0.53); HEMATOCRIT 24.8 % (40.0-51.0); HEMOGLOBIN 8.6 g/dL (13.6-17.8); IMMATURE GRANULOCYTES 0.4 %; IMMATURE GRANULOCYTES ABSOLUTE 0.05 10/3/uL (0.0-0.11); LYMPHOCYTES 11.7 %; LYMPHOCYTES ABSOLUTE 1.31 10/3/uL (0.67-4.30); MANUAL DIFF NO %; MEAN CORPUS HGB CONC 34.7 g/dL (32.0-36.0); MEAN CORPUSCULAR HEMOGLOB 30.9 pg (26.0-34.0); MEAN CORPUSCULAR VOLUME 89.2 fL (80-100); MEAN PLATELET VOLUME 10.7 fL (9.2-13.0); MONOCYTES 13.1 %; MONOCYTES ABSOLUTE 1.46 10/3/uL (0.21-1.20); NEUTROPHILS 74.5 %; NEUTROPHILS ABSOLUTE 8.33 10/3/uL (2.02-8.40); PLATELET COUNT 95 10/3/uL (150-400); RED CELL COUNT 2.78 10/6/uL (4.7-6.1); WHITE BLOOD CELLS 11.2 10/3/uL (4.5-10.5)
[2016-08-08 03:45] LABS: INTERNATIONAL NORMAL RATI 1.2 UNITS (-); PROTIME (NOT ORD) 14.6 SEC (12.0-14.5)
[2016-08-08 04:11] LABS: BUN (BLOOD UREA NITROGEN) 58 MG/DL (6-23); CHLORIDE, SERUM 99 MMOL/L (96-112); CO2 (CARBON DIOXIDE) 30 MMOL/L (24-34); CREATININE 1.96 MG/DL (0.70-1.30); GFR AFRICAN AMERICAN 39 ML/MIN (>=60); GFR NON AFRICAN AMERICAN 33 ML/MIN (>=60); POTASSIUM, SERUM 4.5 MMOL/L (3.5-5.3); SODIUM, SERUM 135 MMOL/L (135-148)
[2016-08-08 04:20] LABS: CALCIUM, SERUM 8.6 MG/DL (8.5-10.4)
[2016-08-08 04:23] LABS: GLUCOSE, SERUM 110 MG/DL (60-99)
[2016-08-08 08:10] LABS: POTASSIUM, SERUM 4.1 MMOL/L (3.5-5.3)
[2016-08-08 08:34] LABS: INTERNATIONAL NORMAL RATI 1.2 UNITS (-); PROTIME (NOT ORD) 14.8 SEC (12.0-14.5)
[2016-08-09 05:41] LABS: BASOPHILS 0 %; EOSINOPHILS 0.7 %; EOSINOPHILS ABSOLUTE 0.08 10/3/uL (0.0-0.53); HEMATOCRIT 24.7 % (40.0-51.0); HEMOGLOBIN 8.4 g/dL (13.6-17.8); IMMATURE GRANULOCYTES 0.6 %; IMMATURE GRANULOCYTES ABSOLUTE 0.06 10/3/uL (0.0-0.11); LYMPHOCYTES 11.5 %; LYMPHOCYTES ABSOLUTE 1.25 10/3/uL (0.67-4.30); MEAN CORPUSCULAR HEMOGLOB 30.2 pg (26.0-34.0); MEAN CORPUSCULAR VOLUME 88.8 fL (80-100); MEAN PLATELET VOLUME 10.6 fL (9.2-13.0); MONOCYTES 17.5 %; NEUTROPHILS 69.7 %; NEUTROPHILS ABSOLUTE 7.55 10/3/uL (2.02-8.40); RED CELL COUNT 2.78 10/6/uL (4.7-6.1); WHITE BLOOD CELLS 10.8 10/3/uL (4.5-10.5)
[2016-08-09 05:42] LABS: INTERNATIONAL NORMAL RATI 1.3 UNITS (-); PROTIME (NOT ORD) 15.6 SEC (12.0-14.5)
[2016-08-09 05:44] LABS: MANUAL DIFF NO %; PLATELET COUNT 124 10/3/uL (150-400)
[2016-08-09 05:51] LABS: BUN (BLOOD UREA NITROGEN) 59 MG/DL (6-23); CALCIUM, SERUM 8.2 MG/DL (8.5-10.4); CHLORIDE, SERUM 96 MMOL/L (96-112); CO2 (CARBON DIOXIDE) 28 MMOL/L (24-34); CREATININE 1.65 MG/DL (0.70-1.30); GFR AFRICAN AMERICAN 48 ML/MIN (>=60); GFR NON AFRICAN AMERICAN 41 ML/MIN (>=60); GLUCOSE, SERUM 144 MG/DL (60-99); PHOSPHORUS, SERUM 3.1 MG/DL (2.5-4.5); POTASSIUM, SERUM 4.4 MMOL/L (3.5-5.3); SODIUM, SERUM 132 MMOL/L (135-148)
[2016-08-10 06:48] LABS: BASOPHILS 0.1 %; BASOPHILS ABSOLUTE 0.01 10/3/uL (0.0-0.16); EOSINOPHILS 3.5 %; EOSINOPHILS ABSOLUTE 0.41 10/3/uL (0.0-0.53); HEMATOCRIT 25.9 % (40.0-51.0); HEMOGLOBIN 8.8 g/dL (13.6-17.8); IMMATURE GRANULOCYTES 1.1 %; IMMATURE GRANULOCYTES ABSOLUTE 0.13 10/3/uL (0.0-0.11); LYMPHOCYTES 15.3 %; LYMPHOCYTES ABSOLUTE 1.81 10/3/uL (0.67-4.30); MANUAL DIFF NO %; MEAN CORPUSCULAR HEMOGLOB 30.6 pg (26.0-34.0); MEAN CORPUSCULAR VOLUME 89.9 fL (80-100); MEAN PLATELET VOLUME 10.9 fL (9.2-13.0); MONOCYTES 16.6 %; MONOCYTES ABSOLUTE 1.96 10/3/uL (0.21-1.20); NEUTROPHILS 63.4 %; PLATELET COUNT 160 10/3/uL (150-400); RBC DISTRIBUTION WIDTH 13.1 % (12.0-16.0); RED CELL COUNT 2.88 10/6/uL (4.7-6.1); WHITE BLOOD CELLS 11.8 10/3/uL (4.5-10.5)
[2016-08-10 06:51] LABS: INTERNATIONAL NORMAL RATI 1.3 UNITS (-); PROTIME (NOT ORD) 15.7 SEC (12.0-14.5)
[2016-08-10 07:03] LABS: CALCIUM, SERUM 8.2 MG/DL (8.5-10.4); CHLORIDE, SERUM 96 MMOL/L (96-112); CO2 (CARBON DIOXIDE) 30 MMOL/L (24-34); CREATININE 1.69 MG/DL (0.70-1.30); GFR AFRICAN AMERICAN 46 ML/MIN (>=60); GFR NON AFRICAN AMERICAN 40 ML/MIN (>=60); GLUCOSE, SERUM 161 MG/DL (60-99); POTASSIUM, SERUM 4.5 MMOL/L (3.5-5.3); SODIUM, SERUM 135 MMOL/L (135-148)
[2016-08-10 07:04] LABS: BUN (BLOOD UREA NITROGEN) 53 MG/DL (6-23)
[2016-08-11 05:42] LABS: BASOPHILS 0.1 %; BASOPHILS ABSOLUTE 0.01 10/3/uL (0.0-0.16); EOSINOPHILS 3.5 %; EOSINOPHILS ABSOLUTE 0.41 10/3/uL (0.0-0.53); HEMATOCRIT 25.7 % (40.0-51.0); HEMOGLOBIN 8.7 g/dL (13.6-17.8); IMMATURE GRANULOCYTES 1.1 %; IMMATURE GRANULOCYTES ABSOLUTE 0.13 10/3/uL (0.0-0.11); LYMPHOCYTES 13.8 %; LYMPHOCYTES ABSOLUTE 1.63 10/3/uL (0.67-4.30); MEAN CORPUS HGB CONC 33.9 g/dL (32.0-36.0); MEAN CORPUSCULAR HEMOGLOB 30.4 pg (26.0-34.0); MEAN CORPUSCULAR VOLUME 89.9 fL (80-100); MEAN PLATELET VOLUME 10.6 fL (9.2-13.0); MONOCYTES 14.7 %; MONOCYTES ABSOLUTE 1.73 10/3/uL (0.21-1.20); NEUTROPHILS 66.8 %; NEUTROPHILS ABSOLUTE 7.87 10/3/uL (2.02-8.40); PLATELET COUNT 188 10/3/uL (150-400); RED CELL COUNT 2.86 10/6/uL (4.7-6.1); WHITE BLOOD CELLS 11.8 10/3/uL (4.5-10.5)
[2016-08-11 05:45] LABS: INTERNATIONAL NORMAL RATI 1.3 UNITS (-); PROTIME (NOT ORD) 15.8 SEC (12.0-14.5)
[2016-08-11 05:47] LABS: MANUAL DIFF NO %
[2016-08-11 05:51] LABS: CALCIUM, SERUM 8.4 MG/DL (8.5-10.4); CHLORIDE, SERUM 96 MMOL/L (96-112); CREATININE 1.59 MG/DL (0.70-1.30); GFR AFRICAN AMERICAN 50 ML/MIN (>=60); GFR NON AFRICAN AMERICAN 43 ML/MIN (>=60); POTASSIUM, SERUM 4.4 MMOL/L (3.5-5.3); SODIUM, SERUM 137 MMOL/L (135-148)
[2016-08-11 05:52] LABS: BUN (BLOOD UREA NITROGEN) 46 MG/DL (6-23); CO2 (CARBON DIOXIDE) 35 MMOL/L (24-34); GLUCOSE, SERUM 117 MG/DL (60-99)
[2016-08-12 04:45] LABS: BASOPHILS 0.1 %; BASOPHILS ABSOLUTE 0.01 10/3/uL (0.0-0.16); EOSINOPHILS 2.9 %; EOSINOPHILS ABSOLUTE 0.33 10/3/uL (0.0-0.53); HEMATOCRIT 26.9 % (40.0-51.0); HEMOGLOBIN 9.1 g/dL (13.6-17.8); IMMATURE GRANULOCYTES 1.1 %; IMMATURE GRANULOCYTES ABSOLUTE 0.13 10/3/uL (0.0-0.11); LYMPHOCYTES 16.6 %; LYMPHOCYTES ABSOLUTE 1.91 10/3/uL (0.67-4.30); MEAN CORPUS HGB CONC 33.8 g/dL (32.0-36.0); MEAN CORPUSCULAR VOLUME 88.8 fL (80-100); MEAN PLATELET VOLUME 10.6 fL (9.2-13.0); MONOCYTES 10.1 %; MONOCYTES ABSOLUTE 1.16 10/3/uL (0.21-1.20); NEUTROPHILS 69.2 %; PLATELET COUNT 229 10/3/uL (150-400); RED CELL COUNT 3.03 10/6/uL (4.7-6.1); WHITE BLOOD CELLS 11.5 10/3/uL (4.5-10.5)
[2016-08-12 04:46] LABS: MANUAL DIFF NO %
[2016-08-12 04:52] LABS: INTERNATIONAL NORMAL RATI 1.4 UNITS (-); PROTIME (NOT ORD) 17.3 SEC (12.0-14.5)
[2016-08-12 05:02] LABS: BUN (BLOOD UREA NITROGEN) 46 MG/DL (6-23); CALCIUM, SERUM 8.6 MG/DL (8.5-10.4); CHLORIDE, SERUM 93 MMOL/L (96-112); CO2 (CARBON DIOXIDE) 32 MMOL/L (24-34); CREATININE 1.51 MG/DL (0.70-1.30); GFR AFRICAN AMERICAN 53 ML/MIN (>=60); GFR NON AFRICAN AMERICAN 46 ML/MIN (>=60); POTASSIUM, SERUM 4.1 MMOL/L (3.5-5.3); SODIUM, SERUM 133 MMOL/L (135-148)
[2016-08-12 05:03] LABS: GLUCOSE, SERUM 192 MG/DL (60-99)
[2016-08-13 05:48] LABS: INTERNATIONAL NORMAL RATI 1.7 UNITS (-); PROTIME (NOT ORD) 19.7 SEC (12.0-14.5)
[2016-08-14 05:18] LABS: BASOPHILS 0.1 %; BASOPHILS ABSOLUTE 0.01 10/3/uL (0.0-0.16); EOSINOPHILS 2.2 %; EOSINOPHILS ABSOLUTE 0.27 10/3/uL (0.0-0.53); HEMATOCRIT 26.6 % (40.0-51.0); HEMOGLOBIN 9.1 g/dL (13.6-17.8); IMMATURE GRANULOCYTES 1.2 %; IMMATURE GRANULOCYTES ABSOLUTE 0.14 10/3/uL (0.0-0.11); LYMPHOCYTES 18.5 %; LYMPHOCYTES ABSOLUTE 2.25 10/3/uL (0.67-4.30); MEAN CORPUS HGB CONC 34.2 g/dL (32.0-36.0); MEAN CORPUSCULAR HEMOGLOB 30.2 pg (26.0-34.0); MEAN CORPUSCULAR VOLUME 88.4 fL (80-100); MEAN PLATELET VOLUME 10.1 fL (9.2-13.0); MONOCYTES 9.2 %; MONOCYTES ABSOLUTE 1.12 10/3/uL (0.21-1.20); NEUTROPHILS 68.8 %; NEUTROPHILS ABSOLUTE 8.34 10/3/uL (2.02-8.40); PLATELET COUNT 255 10/3/uL (150-400); RBC DISTRIBUTION WIDTH 13.2 % (12.0-16.0); RED CELL COUNT 3.01 10/6/uL (4.7-6.1); WHITE BLOOD CELLS 12.1 10/3/uL (4.5-10.5)
[2016-08-14 05:20] LABS: MANUAL DIFF NO %
[2016-08-14 05:21] LABS: PROTIME (NOT ORD) 22.3 SEC (12.0-14.5)
[2016-08-14 05:32] LABS: BUN (BLOOD UREA NITROGEN) 44 MG/DL (6-23); CALCIUM, SERUM 8.8 MG/DL (8.5-10.4); CHLORIDE, SERUM 96 MMOL/L (96-112); CO2 (CARBON DIOXIDE) 32 MMOL/L (24-34); CREATININE 1.45 MG/DL (0.70-1.30); GFR AFRICAN AMERICAN 56 ML/MIN (>=60); GFR NON AFRICAN AMERICAN 48 ML/MIN (>=60); POTASSIUM, SERUM 4.1 MMOL/L (3.5-5.3); SODIUM, SERUM 133 MMOL/L (135-148)
[2016-08-14 05:35] LABS: GLUCOSE, SERUM 78 MG/DL (60-99)
[2016-08-14] MEDS ORDERED: LOP50 PO (10:16)
[2016-08-14] MEDS ORDERED: LIPITOR40 PO (10:16)
[2016-08-14] MEDS ORDERED: HYDRALAZINE100 MG PO (10:17)
[2016-08-14] MEDS ORDERED: DEMA20 PO (10:18)
[2016-08-14] MEDS ORDERED: NORCO1 TA1 PO (10:18)
[2016-08-14] MEDS ORDERED: KDUR20 PO (10:19)
[2016-08-14] MEDS ORDERED: V2 PO (11:25)
[2016-08-14] MEDS ORDERED: C5 PO (11:26)
[2016-11-13] MEDS ORDERED: LIVALO4 MG PO (11:43)
[2016-11-13] MEDS ORDERED: X5 PO (11:43)
[2016-11-13] MEDS ORDERED: LYRICA50 PO (11:44)
[2016-11-13] MEDS ORDERED: L20 PO (11:46)
[2016-11-14] MEDS ORDERED: HYDROCODONE PO (11:18)
== END 2016-08-14 13:27 | disposition home or self-care (01) | DRG 219 ==
LOC: SDC/OF 06:38 → CVICU 18:31 → 5NO 08-08 09:51
PROVIDERS: Anesthesiology; Internal Medicine Cardiovascular Disease; Internal Medicine Nephrology; Nurse Practitioner Adult Health; Thoracic Surgery (Cardiothoracic Vascular Surgery)
PROC: 02580ZZ Destruction of Conduction Mechanism, Open Approach (ICD-10-PCS; 2016-08-04)
PROC: 5A1221Z Performance of Cardiac Output, Continuous (ICD-10-PCS; 2016-08-04)
PROC: B246ZZ4 Ultrasonography of Right and Left Heart, Transesophageal (ICD-10-PCS; 2016-08-04)
PROC: 021309W Bypass Coronary Artery, Four or More Arteries from Aorta with Autologous Venous Tissue, Open Approach (ICD-10-PCS; principal; 2016-08-04 12:00)
PROC: 02RF08Z Replacement of Aortic Valve with Zooplastic Tissue, Open Approach (ICD-10-PCS; 2016-08-04 12:00)
PROC: 02100Z9 Bypass Coronary Artery, One Artery from Left Internal Mammary, Open Approach (ICD-10-PCS; 2016-08-04 12:00)
PROC: 06BP4ZZ Excision of Right Saphenous Vein, Percutaneous Endoscopic Approach (ICD-10-PCS; 2016-08-04 12:00)
DX: I25.119 Atherosclerotic heart disease of native coronary artery with unspecified angina pectoris (principal); J95.821 Acute postprocedural respiratory failure; N17.9 Acute kidney failure, unspecified; Z68.41 Body mass index [BMI] 40.0-44.9, adult; J90 Pleural effusion, not elsewhere classified; D69.6 Thrombocytopenia, unspecified; N18.3 Chronic kidney disease, stage 3 (moderate); E11.40 Type 2 diabetes mellitus with diabetic neuropathy, unspecified; I48.0 Paroxysmal atrial fibrillation; I35.0 Nonrheumatic aortic (valve) stenosis; E66.01 Morbid (severe) obesity due to excess calories; G47.33 Obstructive sleep apnea (adult) (pediatric); E78.5 Hyperlipidemia, unspecified; E11.319 Type 2 diabetes mellitus with unspecified diabetic retinopathy without macular edema; Z79.4 Long term (current) use of insulin; Z87.442 Personal history of urinary calculi; Z79.82 Long term (current) use of aspirin; Z79.899 Other long term (current) drug therapy; E87.70 Fluid overload, unspecified; I12.9 Hypertensive chronic kidney disease with stage 1 through stage 4 chronic kidney disease, or unspecified chronic kidney disease
CPT/HCPCS: 31720; 36415; 71010; 71020; 76775; 80048; 80053; 80069; 81001; 82330; 82570; 82803; 82805; 82947; 82962; 83036; 83540; 83550; 83735; 84100; 84132; 84156; 84295; 84540; 85014; 85018; 85025; 85049; 85347; 85610; 85730; 86850; 86900; 86901; 86920; 87641; 88304; 88305; 88311; 93005; 93312; 93320; 93325; 94002; 94640; 94660; 94770; A9270-GY; C1713; C1769; C2618; J0690; J1200; J1205; J1644; J1940; J2150; J2250; J2370; J2405; J2440; J2597; J2720; J2795; J2930; J3010; J3475; J3480; P9045; P9047